=== PATIENT | female | born 1940 | race Hispanic/Latino ===

== ENCOUNTER → 2017-05-15 | Outpatient (CLI) | payer OTHER | END | disposition home or self-care (01) | LOC: OIH 05-14 12:48 | PROVIDERS: ATTEND Family Medicine | DX: I51.7 Cardiomegaly (principal); J18.0 Bronchopneumonia, unspecified organism; K44.9 Diaphragmatic hernia without obstruction or gangrene | CPT/HCPCS: 71046 ==